=== PATIENT | female | born 1990 | race American Indian/Alaskan Native ===

== ENCOUNTER 2016-12-08 12:39 | Emergency (ER) | payer MEDICAID ==
[2016-12-08 12:47] VITALS: BP 121/75
--- NOTE | 2016-12-08 13:21 | Emergency Department Report ---
Chief Complaint: Nausea/Vomiting/Diarrhea Stated Complaint: EYE SWOLLEN/FATIGUE/NAUSEA Time Seen by Provider: 12/08/16 13:15 - HPI History of Present Illness: Patient is a 25-year-old female at approximately 27 weeks gestation who presents with intermittent dizziness while at work 1 week. Patient states she is at work at [employer] she is on her feet for prolonged ration and starts to get dizzy. Patient admits she is not expressing any dizziness at the moment. Patient states mild eye irritation and clear tears while at work. Patient states positive movement but denies vaginal bleeding or leaking or dysuria. Patient denies fevers/chills/vomiting/diarrhea/headache/shortness of breath/ chest pain or any other problems. - ROS Review of Systems: As noted in HPI - Exam Vital Signs: Vital Signs 12/08/16 12:43 Temperature 98.3 F Pulse Rate 83 Respiratory 16 Rate Blood Pressure 121/75 O2 Sat by Pulse 99 Oximetry Physical Exam: GENERAL: Alert and oriented x3, no apparent distress, Normal Gait, atraumatic. HEAD: Head is normocephalic and a-traumatic. EYES: Extra ocular muscles are intact. Pupils are equal, round, and reactive to light and accommodation. NECK: Supple. Non edematous, No carotid bruits. No lymphadenopathy or thyromegaly. LUNGS: Symetrical with respiration, No wheezing, no rales or crackles, CTAB. HEART: S1, S2 present, regular rate and rhythm without murmur, no rubs, no gallops. ABDOMEN: Gravid uterus,Positive bowel sounds, soft, and non-distended. . Nontender to palpation on all Quadrants, NO CVA tenderness. SKIN: Warm and dry, No lesions, No ulceration or induration present. MSE screening note: Focused history and physical exam performed. Due to findings the following was ordered: ED Medical Decision Making - Medical Decision Making 28-year-old female at 27 weeks gestation for medical clearance. Vital signs stable. Patient is in no respiratory or acute distress. CBC and BMP ordered. ED Disposition for MSE Condition: Stable
[2016-12-08 13:57] LABS: Anion Gap 16 mmol/L; Blood Urea Nitrogen 5 mg/dL (7-17); Calcium 8.9 mg/dL (8.4-10.2); Carbon Dioxide 23 mmol/L (22-30); Chloride 98.7 mmol/L (98-107); Glucose 90 mg/dL (65-100); Potassium 3.4 mmol/L (3.6-5.0); Sodium 134 mmol/L (137-145)
[2016-12-08 14:05] LABS: Basophils % (Auto) 0.3 % (0.0-1.8); Eosinophils % (Auto) 0.9 % (0.0-4.3); Hematocrit 31.7 % (30.3-42.9); Hemoglobin 10.4 gm/dl (10.1-14.3); Mean Corpuscular HGB Conc 33 % (30-34); Mean Corpuscular Hemoglobin 27 pg (28-32); Mean Corpuscular Volume 82 fl (79-97); Platelet Count 278 K/mm3 (140-440); Red Blood Count 3.85 M/mm3 (3.65-5.03); Red Cell Distribution Width 14.7 % (13.2-15.2); White Blood Count 9.1 K/mm3 (4.5-11.0)
[2016-12-08] MEDS ORDERED: TYLENOL PO ONE (18:14)
--- NOTE | 2016-12-09 07:37 | ED Elopement Review ---
ED Pt Elopement review - Results review Lab results: Laboratory Tests 12/08/16 12/08/16 13:30 13:30 WBC 9.1 RBC 3.85 Hgb 10.4 Hct 31.7 MCV 82 MCH 27 L MCHC 33 RDW 14.7 Plt Count 278 Lymph % (Auto) 26.4 Levy % (Auto) 7.8 H Eos % (Auto) 0.9 Baso % (Auto) 0.3 Lymph # 2.4 Levy # 0.7 Eos # 0.1 Baso # 0.0 Seg Neutrophils % 64.6 Seg Neutrophils # 5.9 Sodium 134 L Potassium 3.4 L Chloride 98.7 Carbon Dioxide 23 Anion Gap 16 BUN 5 L Creatinine 0.5 L Estimated GFR > 60 BUN/Creatinine Ratio 10.00 Glucose 90 Calcium 8.9 - Call Back decision Pt Call Back Decision: No action required
== END 2016-12-08 17:30 | disposition left against medical advice (07) ==
LOC: ED 12:39
DX: O26.892 Other specified pregnancy related conditions, second trimester (principal); R42 Dizziness and giddiness; Z3A.27 27 weeks gestation of pregnancy
CPT/HCPCS: 36415; 80048; 85025

== ENCOUNTER 2016-12-09 10:52 | Outpatient (CLI) | payer MEDICAID ==
[2016-12-09] MEDS ORDERED: LACTATED RINGERS 500 ML IV ONE (11:57)
[2016-12-09 12:17] LABS: Urine Drugs of Abuse Note Disclamer
[2016-12-09 12:24] LABS: Bilirubin,Urine NEG (Negative); Blood,Urine NEG (Negative); Ketones,Urine NEG (Negative); Leukocyte Esterase,Urine NEG (Negative); Mucus,Urine FEW /HPF; Nitrite,Urine NEG (Negative); Protein,Urine <15 mg/dL mg/dL (Negative); Urobilinogen,Urine < 2.0 mg/dL (<2.0)
== END 2016-12-09 12:46 | disposition home or self-care (01) ==
LOC: TRG 10:52 → LD 10:55 → TRG 10:59
PROVIDERS: ATTEND Obstetrics & Gynecology
DX: O77.9 Labor and delivery complicated by fetal stress, unspecified (principal); O47.02 False labor before 37 completed weeks of gestation, second trimester; Z3A.27 27 weeks gestation of pregnancy
CPT/HCPCS: 59025; 80307; 81001

== ENCOUNTER 2017-09-30 19:52 | Emergency (ER) | payer MEDICAID ==
[2017-09-30 21:22] VITALS: BP 152/99
--- NOTE | 2017-09-30 21:22 | XRay Report ---
FINAL REPORT PROCEDURE: XR KNEE 1-2V RT TECHNIQUE: Right knee radiographs, AP and cross-table lateral views obtained. HISTORY: Swollen Rt Knee COMPARISON: No prior studies are available for comparison. FINDINGS: No evidence of acute fracture or dislocation. Moderate-sized joint effusion is present. Joint spaces are well maintained. There is mild irregularity and fragmentation of the tibial tuberosity. This can be seen with previous Lanny-Schlatter's disease. Bone density appears normal. No radiopaque foreign bodies are identified. IMPRESSION: Moderate-sized joint effusion. Irregularity tibial tuberosity as described. No other abnormalities are identified.
--- NOTE | 2017-10-01 00:25 | Emergency Department Report ---
ED Extremity Problem HPI - General Chief complaint: Extremity Injury, Lower Stated complaint: KNEE PAIN Time Seen by Provider: 09/30/17 23:57 Source: patient Mode of arrival: Ambulatory Limitations: No Limitations - History of Present Illness Initial comments: 26-year-old female past medical history none presents with complaint of approximately 3-4 months of persistent right knee pain and intermittent swelling. Patient denies any direct trauma denies any falls to denies any motor vehicle accidents denies any assaults. Denies fever or chills denies any skin coloration changes and right knee. States that right knee intermittently swells. States that when it swells she has some difficulty ranging knee. States that she has had this episode for the last 3 days but this has been an ongoing issue for approximately 3 months. Has not sought out medical attention until now. Denies taking any [id number] medicines for the pain. Patient is ambulatory without assistance. MD Complaint: extremity pain Onset/Timin -: month(s) Location: right, knee History of Same: Yes Radiation: none Severity scale (0 -10): 3 Quality: aching Consistency: intermittent Improves with: cold therapy, immobilization, elevation Worsens with: weight bearing, walking, exertion Associated Symptoms: denies other symptoms - Related Data Previous Rx's Medication Instructions Recorded Last Taken Type Naproxen 250 mg PO Q8H PRN #30 tablet 10/01/17 Unknown Rx Allergies Allergy/AdvReac Type Severity Reaction Status Date / Time No Known Allergies Allergy Unverified 09/24/16 16:24 ED Review of Systems ROS: Stated complaint: KNEE PAIN Other details as noted in HPI Constitutional: denies: chills, fever Eyes: denies: eye pain, eye discharge, vision change ENT: denies: ear pain, throat pain Respiratory: denies: cough, shortness of breath, wheezing Cardiovascular: denies: chest pain, palpitations Endocrine: no symptoms reported Gastrointestinal: denies: abdominal pain, nausea, diarrhea Genitourinary: denies: urgency, dysuria, discharge Musculoskeletal: as per HPI, joint swelling (right knee). denies: back pain, arthralgia Skin: denies: rash, lesions Neurological: denies: headache, weakness, paresthesias Psychiatric: denies: anxiety, depression Hematological/Lymphatic: denies: easy bleeding, easy bruising ED Past Medical Hx - Past Medical History Previous Medical History?: No - Surgical History Past Surgical History?: Yes Additional Surgical History: all vaginal births - Social History Smoking Status: Never Smoker Substance Use Type: None - Medications Home Medications: Home Medications Medication Instructions Recorded Confirmed Last Taken Type Naproxen 250 mg PO Q8H PRN #30 tablet 10/01/17 Unknown Rx ED Physical Exam - General Limitations: No Limitations General appearance: alert, in no apparent distress - Head Head exam: Present: atraumatic, normocephalic - Eye Eye exam: Present: normal appearance, PERRL, EOMI - ENT ENT exam: Present: mucous membranes moist - Neck Neck exam: Present: normal inspection - Respiratory Respiratory exam: Present: normal lung sounds bilaterally. Absent: respiratory distress - Cardiovascular Cardiovascular Exam: Present: regular rate, normal rhythm. Absent: systolic murmur, diastolic murmur, rubs, gallop - GI/Abdominal GI/Abdominal exam: Present: soft, normal bowel sounds - Extremities Exam Extremities exam: Present: normal inspection - Expanded Lower Extremity Exam Right Hip exam: Present: normal inspection, full ROM Upper Leg exam: Present: normal inspection, full ROM Knee exam: Present: full ROM (knee flexion and extension intact both active and passive), swelling (some visible right knee swelling anteriorly), pain/laxity with valgus (mild pain with valgus motion), full knee extension ( can fully extend the knee) Lower Leg exam: Present: normal inspection, full ROM Ankle exam: Present: normal inspection, full ROM Foot/Toe exam: Present: normal inspection, full ROM Neuro vascular tendon exam: Present: no vascular compromise (distal dorsalis pedis and posterior tibial pulses are intact) Gait: Positive: observed and normal 1 - mild swelling visible - Back Exam Back exam: Present: normal inspection - Neurological Exam Neurological exam: Present: alert, oriented X3, CN II-XII intact, normal gait - Psychiatric Psychiatric exam: Present: normal affect, normal mood - Skin Skin exam: Present: warm, dry, intact, normal color. Absent: rash ED Course Vital Signs 09/30/17 20:05 Temperature 98.5 F Pulse Rate 87 Respiratory 18 Rate Blood Pressure 152/99 [Right] O2 Sat by Pulse 99 Oximetry ED Medical Decision Making - Medical Decision Making A/P: Chronic right knee pain, possible Whitney-Schlatter deformity 1-I educated the patient on possible Lanny-Schlatter deformity in her right knee 2-naproxen when necessary, patient provided with Mathieu wrap and knee immobilizer, RICE therapy 3-I advised patient to follow up with orthopedics and provided her with several referrals 4- range of motion right knee intact, right lower extremity neurovascularly intact good distal pulses and sensation. Patient is ambulatory without assistance Critical care attestation.: If time is entered above; I have spent that time in minutes in the direct care of this critically ill patient, excluding procedure time. ED Disposition Clinical Impression: Right knee pain Qualifiers: Chronicity: acute Qualified Code(s): M25.561 - Pain in right knee Disposition: DC-01 TO HOME OR SELFCARE Is pt being admited?: No Does the pt Need Aspirin: No Condition: Stable Instructions: Whitney-Schlatter Disease (ED), Knee Pain (ED), Knee Effusion (ED) , Patellofemoral Pain Syndrome (ED), RICE Therapy (ED), Knee Immobilizer (ED) Prescriptions: Naproxen 250 mg PO Q8H PRN #30 tablet PRN Reason: Pain Referrals: BARRON SEO MD [Staff Physician] - 3-5 Days [facility] [Provider Group] - 3-5 Days Time of Disposition: 00:27
[2017-10-01] MEDS ORDERED: MOTRIN PO ONE (00:31)
== END 2017-10-01 00:47 | disposition home or self-care (01) ==
LOC: ED 19:52
DX: M25.561 Pain in right knee (principal)

== ENCOUNTER 2018-01-16 05:25 | Emergency (ER) | payer MEDICAID ==
[2018-01-16 06:34] LABS: Bacteria,Urine 1+ /HPF (Negative); Bilirubin,Urine NEG (Negative); Blood,Urine NEG (Negative); Color,Urine Yellow (Yellow); Mucus,Urine FEW /HPF; Protein,Urine <15 mg/dL mg/dL (Negative); Urobilinogen,Urine < 2.0 mg/dL (<2.0)
[2018-01-16 06:36] LABS: HCG Qualitative,Urine Positive (Negative)
--- NOTE | 2018-01-16 09:21 | Emergency Department Report ---
ED General Adult HPI - General Chief complaint: Medical Clearance Stated complaint: CONSTIPATION Time Seen by Provider: 01/16/18 07:47 Source: patient, EMS Mode of arrival: Ambulatory Limitations: No Limitations - History of Present Illness Initial comments: This is a a 27 y.o. female that presents with constipation since last night. She tried drinking prune juice and miralax to help pass stool. She is having bowel movements, but passing small hard stools. Patient reports feeling abdominal cramping and not sure what is going on. She is unsure of LMP. A2. Denies leakage, discharge, frequency, urgency, or chest pain. -: Last night Location: abdomen (cramping) Radiation: non-radiation Severity scale (0 -10): 5 Quality: other (cramping) Consistency: intermittent Improves with: other (bowel movement) Associated Symptoms: denies other symptoms. denies: confusion, chest pain, cough, diaphoresis, headaches, loss of appetite, malaise, nausea/vomiting, rash , shortness of breath, syncope, weakness Treatments Prior to Arrival: other (miralax) - Related Data Previous Rx's Medication Instructions Recorded Last Taken Type Naproxen 250 mg PO Q8H PRN #30 tablet 10/01/17 Unknown Rx Allergies Allergy/AdvReac Type Severity Reaction Status Date / Time No Known Allergies Allergy Unverified 09/24/16 16:24 ED Review of Systems ROS: Stated complaint: CONSTIPATION Other details as noted in HPI Constitutional: denies: chills, fever, malaise Respiratory: denies: cough, shortness of breath, wheezing Cardiovascular: denies: chest pain, palpitations Gastrointestinal: constipation. denies: abdominal pain, nausea, diarrhea Genitourinary: denies: urgency, dysuria, discharge Neurological: denies: headache, weakness, paresthesias Psychiatric: denies: anxiety, depression ED Past Medical Hx - Past Medical History Previous Medical History?: No - Surgical History Past Surgical History?: No Additional Surgical History: all vaginal births - Social History Smoking Status: Former Smoker Substance Use Type: None - Medications Home Medications: Home Medications Medication Instructions Recorded Confirmed Last Taken Type Naproxen 250 mg PO Q8H PRN #30 tablet 10/01/17 Unknown Rx ED Physical Exam - General Limitations: No Limitations General appearance: alert, in no apparent distress - Respiratory Respiratory exam: Present: normal lung sounds bilaterally. Absent: respiratory distress - Cardiovascular Cardiovascular Exam: Present: regular rate, normal rhythm. Absent: systolic murmur, diastolic murmur, rubs, gallop - GI/Abdominal GI/Abdominal exam: Present: soft, normal bowel sounds. Absent: distended, tenderness, guarding, rebound, rigid, organomegaly, mass - Rectal Rectal exam: Present: deferred - Neurological Exam Neurological exam: Present: alert, oriented X3 - Psychiatric Psychiatric exam: Present: normal affect, normal mood - Skin Skin exam: Present: warm, dry, intact, normal color. Absent: rash ED Course Vital Signs 01/16/18 05:29 Temperature 98.4 F Pulse Rate 86 Blood Pressure 108/75 O2 Sat by Pulse 98 Oximetry ED Medical Decision Making - Radiology Data Radiology results: report reviewed IMPRESSION: Viable, single intrauterine dated at 10 weeks, 0 days. Heart rate measures 170 beats per minute. Moderate subchorionic hemorrhage. The left ovary is not clearly visualized. - Medical Decision Making This is a 27 y.o. female that presents with abdominal cramping and constipation since last night. She is currently taking miralax with mild improvement. She is having movements but they are hard balls. Patient examined by me. No distress noted. Vitals stable. Obtained UA, urine HCG, trasvaginal US, and US. Patient notified of positive HCG and US results: Viable, single intrauterine dated at 10 weeks, 0 days. Heart rate measures 170 beats per minute. Moderate subchorionic hemorrhage. The left ovary is not clearly visualized. Instructed to stop miralax and start taking metamucil to increas fiber and increase water intake for constipation. Follow up with [facility]. Critical care attestation.: If time is entered above; I have spent that time in minutes in the direct care of this critically ill patient, excluding procedure time. ED Disposition Clinical Impression: confirmed by positive urine test, Constipation during in first trimester Disposition: -01 TO HOME OR SELFCARE Is pt being admited?: No Does the pt Need Aspirin: No Condition: Stable Instructions: Constipation (ED), High Fiber Diet (ED), (ED) Additional Instructions: Increase fiber intake with foods and/or metamucil. Increase water intake and drink or eat prunes. Take colace daily to soften stool. Avoid taking laxatives during . Follow up with [facility] in 24-72 hours. Referrals: [facility] [Provider Group] - 3-5 Days Forms: Work/School Release Form(ED) Time of Disposition: 10:20 Print Language: INDONESIAN
--- NOTE | 2018-01-16 09:49 | Ultrasound Report ---
ULTRASOUND OB LESS THAN 14 WEEKS FETUS ULTRASOUND OB TRANSVAGINAL HISTORY: Positive test, constipation, unknown gestation. COMPARISON: None. TECHNIQUE: Transabdominal and transvaginal ultrasound with color doppler interrogation. FINDINGS: Uterus: The uterus measures 14 x 7 x 10 cm. No obvious uterine fibroid disease. The cervix is unremarkable. Endometrium: An intrauterine gestational sac containing a small pole and yolk sac is identified. Heart rate measures 170 beats per minute. [place]-rump length measures 31 mm which correlates with a 10 week, 0 day . Estimated due date is 08/14/18. A moderate subchorionic hemorrhage is identified along the superior and posterior border of the gestational sac. Right ovary: 3.3 x 2.5 x 3.0 cm. Probable 2.3 cm corpus luteum cyst in the right ovary. Left ovary: Not clearly visualized. No pelvic fluid or mass is identified. Normal color doppler interrogation. IMPRESSION: Viable, single intrauterine dated at 10 weeks, 0 days. Heart rate measures 170 beats per minute. Moderate subchorionic hemorrhage. The left ovary is not clearly visualized.
[2018-01-16 10:30] VITALS: BP 129/82
== END 2018-01-16 10:30 | disposition home or self-care (01) ==
LOC: ED 05:25
DX: O26.891 Other specified pregnancy related conditions, first trimester (principal); K59.00 Constipation, unspecified; R10.9 Unspecified abdominal pain; Z3A.10 10 weeks gestation of pregnancy; Z87.891 Personal history of nicotine dependence
CPT/HCPCS: 76801; 76817; 81001; 81025; 99284